=== PATIENT | female | born 1970 | race African-American/Black ===

== ENCOUNTER 2023-03-16 03:52 | Emergency (ER) | payer SELFPAY ==
[2023-03-16 04:09] VITALS: BP 169/108; PULSE 88; RESP 22; TEMP 98.2; BMI 28.1
[2023-03-16 06:04] LABS: BASO % 1.2 % (0-2.0); EOS % 2.1 % (0-4.5); HEMATOCRIT 40.3 % (32.4-45.2); HEMOGLOBIN 14.1 GM/dL (10.7-15.3); LYMPH % 37.5 % (8-40); MCH 29.3 pg (25.7-33.7); MCHC 34.9 g/dl (32.0-36.0); MEAN PLT VOLUME 8.1 fl (7.5-11.1); MONO % 6.4 % (3.8-10.2); NEUT % 52.8 % (42.8-82.8); PLATELET COUNT 297 10^3/uL (134-434); RDW 14.1 % (11.6-15.6); WHITE BLOOD COUNT 7.4 K/mm3 (4.0-10.0)
[2023-03-16 06:29] LABS: BLOOD UREA NITROGEN 14.1 mg/dL (7-18); CALCIUM 8.8 mg/dL (8.5-10.1)
[2023-03-16 06:30] LABS: ALBUMIN 3.4 g/dl (3.4-5.0)
[2023-03-16 06:33] LABS: CREATININE 0.8 mg/dL (0.55-1.3)
[2023-03-16 06:34] LABS: BILIRUBIN,TOTAL 0.3 mg/dL (0.2-1); TOT PROT 7.5 g/dl (6.4-8.2)
== END 2023-03-16 09:18 | disposition home or self-care (01) ==
LOC: JER 03:52
DX: E04.9 Nontoxic goiter, unspecified (principal); R22.1 Localized swelling, mass and lump, neck
CPT/HCPCS: 36415; 70491-TC; 71260-TC; 80053; 84436; 84439; 84443; 84481; 85025; 99285-25; Q9967